=== PATIENT | female | born 1985 | race Two or more races ===

== ENCOUNTER 2018-09-09 09:43 | Outpatient (CLI) | payer OTHER | END 2018-09-09 10:04 | disposition home or self-care (01) | LOC: RX STUDY 09:43 | DX: N93.0 Postcoital and contact bleeding (principal) ==

== ENCOUNTER 2025-01-11 14:55 | Inpatient (IN) | payer OTHER ==
[~2025-01-11] VITALS: Ht 167.6 cm; Wt 86.2 kg
[2025-01-19 07:34] VITALS: BP 120/75
[2025-01-19] MEDS ORDERED: OXYTOCIN 20 UNITS/500ML RL PIGGYBAG IV ONE (08:00)
[2025-01-19 08:40] LABS: HEMATOCRIT 32.6 % (36.0-45.00); HEMOGLOBIN 10.7 g/dL (12.0-15.00); MEAN CELL VOLUME 81.8 fL (80.00-100.00); MEAN CORPUSCULAR HEMOGLOBIN 26.9 pg (27.00-32.0); MEAN CORPUSCULAR HGB CONC 32.9 g/dl (32.0-36.0); PLATELET COUNT 272 K/uL (150-450); RED BLOOD COUNT 3.99 M/uL (4.00-6.00)
[2025-01-19] MEDS ORDERED: PRENATAL TABLE1 EAC1 PO (08:45)
[2025-01-19] MEDS ORDERED: IRON236 MG PO (08:45)
[2025-01-19] MEDS ORDERED: ADULT LOW DOSE81 M1 PO (08:45)
[2025-01-19 08:56] LABS: INR 0.94; PARTIAL THROMBOPLASTIN TIME 25.5 SECONDS (22.0-34.0); PROTHROMBIN TIME 10.3 SECONDS (9.0-11.5)
[2025-01-19] MEDS ORDERED: OXYTOCIN 500 ML IV ONE (09:00)
[2025-01-19] MEDS ORDERED: RINGERS SOLUTION,LACTATED 1,000 ML IV SCH (09:00)
[2025-01-19 10:11] LABS: ALBUMIN 2.7 gm/dL (3.4-5.0); BILIRUBIN TOTAL 0.22 mg/dL (0.3-1.2); CALCIUM 8.9 mg/dL (8.5-10.1); CREATININE SERUM 0.82 mg/dL (0.55-1.02); GFR 78.44; GLOBULINA 3.9 G/DL (2.4-3.5); POTASSIUM 3.81 mEq/L (3.5-5.1); TOTAL PROTEIN 6.6 gm/dL (6.4-8.2)
[2025-01-19 11:14] VITALS: BP 104/66
[2025-01-19] MEDS ORDERED: MORPHINE SULFATE 4 MG/ML CARTRIDGE IV ONE (11:30)
[2025-01-19] MEDS ORDERED: CHLORHEXIDINE GLUCONATE 120 ML BOTTLE TOP ONE ×2 (14:17→16:00)
[2025-01-19] MEDS ORDERED: LIDOCAINE HCL 1% 10ML VIAL ONE (14:17)
[2025-01-19] MEDS ORDERED: OXYTOCIN 20 UNITS/1000ML RL PIGGYBAG IV ONE (14:17)
[2025-01-19] MEDS ORDERED: ERYTHROMYCIN BASE OPHT 1GM EACH TUBE OP ONE ×2 (14:17→16:00)
[2025-01-19 15:18] VITALS: BP 132/71
[2025-01-19 15:33] VITALS: BP 138/70
[2025-01-19] MEDS ORDERED: CHLORHEXIDINE GLUCONATE 120 ML BOTTLE TOP SCH (15:45)
[2025-01-19] MEDS ORDERED: IBUprofen 400 MG TABLET PO PRN (15:45)
[2025-01-19] MEDS ORDERED: OXYTOCIN 1,000 ML IV SCH (15:45)
[2025-01-19] MEDS ORDERED: LIDOCAINE HCL 1% 10ML VIAL PERCUT ONE (16:00)
[2025-01-19 17:11] VITALS: BP 134/78
[2025-01-20] VITALS: BP 107/71; O2SAT 98
[2025-01-20 06:34] LABS: HEMATOCRIT 27.1 % (36.0-45.00); MEAN CELL VOLUME 81.1 fL (80.00-100.00); MEAN CORPUSCULAR HEMOGLOBIN 26.8 pg (27.00-32.0); MEAN CORPUSCULAR HGB CONC 33.1 g/dl (32.0-36.0); PLATELET COUNT 244 K/uL (150-450); RED BLOOD COUNT 3.35 M/uL (4.00-6.00); RED CELL DISTRIBUTION WIDTH 19.9 % (11.5-14.5)
[2025-01-20 16:29] VITALS: BP 98/59; O2SAT 100
[2025-01-21] VITALS: BP 118/77
[2025-01-21 08:49] VITALS: BP 109/62
== END 2025-01-21 12:10 | disposition home or self-care (01) | DRG 807 ==
LOC: OB/GYN 01-18 15:00 → LDR 01-19 07:07 → OB/GYN 01-19 15:49
PROVIDERS: Obstetrics & Gynecology; ADMIT Obstetrics & Gynecology; ATTEND Obstetrics & Gynecology
PROC: 10E0XZZ Delivery of Products of Conception, External Approach (ICD-10-PCS; principal; 2025-01-19)
PROC: 0KQM0ZZ Repair Perineum Muscle, Open Approach (ICD-10-PCS; 2025-01-19)
PROC: 4A1HXCZ Monitoring of Products of Conception, Cardiac Rate, External Approach (ICD-10-PCS; 2025-01-19)
DX: O70.1 Second degree perineal laceration during delivery (principal); Z37.0 Single live birth; Z3A.40 40 weeks gestation of pregnancy

== ENCOUNTER 2025-01-11 15:42 | Outpatient (CLI) | payer OTHER | END 2025-01-11 16:50 | disposition home or self-care (01) | LOC: NST 15:42 | PROVIDERS: ATTEND Obstetrics & Gynecology Maternal & Fetal Medicine | DX: Z3A.39 39 weeks gestation of pregnancy (principal) ==

== ENCOUNTER 2025-01-15 18:18 | Outpatient (CLI) | payer OTHER ==
[2025-01-15 17:04] VITALS: BP 108/73
[2025-01-15 20:27] VITALS: BP 104/68
[2025-01-15 23:12] VITALS: BP 114/76
[2025-01-16 03:27] VITALS: BP 106/67
[2025-01-16 07:20] VITALS: BP 118/73
[2025-01-16 10:57] VITALS: BP 118/75
[2025-01-16 13:30] VITALS: BP 118/75
== END 2025-01-16 13:28 | disposition home or self-care (01) ==
LOC: OBS/DEL 18:18
PROVIDERS: ATTEND Obstetrics & Gynecology
DX: O26.893 Other specified pregnancy related conditions, third trimester (principal); Z3A.39 39 weeks gestation of pregnancy